=== PATIENT | female | born 1980 | race Caucasian/White ===

== ENCOUNTER → 2021-05-09 | Outpatient (CLI) | payer OTHER | LOC: CAT 11:43 | PROVIDERS: ATTEND Family Medicine | DX: Z13.6 Encounter for screening for cardiovascular disorders (principal); I25.10 Atherosclerotic heart disease of native coronary artery without angina pectoris; E78.00 Pure hypercholesterolemia, unspecified ==

== ENCOUNTER → 2021-05-11 | Outpatient (CLI) | payer BC | LOC: SJCVCIMAG 13:23 | PROVIDERS: ATTEND Internal Medicine Cardiovascular Disease | DX: R06.00 Dyspnea, unspecified (principal); I10 Essential (primary) hypertension; E78.5 Hyperlipidemia, unspecified; R07.89 Other chest pain; R53.83 Other fatigue; F17.200 Nicotine dependence, unspecified, uncomplicated; Z87.891 Personal history of nicotine dependence ==

== ENCOUNTER → 2021-05-20 | Outpatient (CLI) | payer BC | LOC: SJCVCIMAG 08:34 | PROVIDERS: ATTEND Internal Medicine Cardiovascular Disease | DX: N13.30 Unspecified hydronephrosis (principal); I10 Essential (primary) hypertension ==